=== PATIENT | male | born 1995 | race Caucasian/White ===

== ENCOUNTER 2023-03-02 10:14 | Emergency (ER) | payer BC, OTHER, SELFPAY ==
[2023-03-02 10:15] VITALS: BP 111/69; PULSE 55; RESP 18; TEMP 36.1; O2SAT 95; BMI 28.8
--- NOTE | 2023-03-02 11:54 | EX.ED.DYSGE1 ---
HPI History of Present Illness Chief Complaint: Dizziness Informant: patient, spouse/S.O. and family Narrative Narrative: Presents here with spouse and [id number] for evaluation. For the last 1 to 2 months intermittent lightheaded symptoms would come and go would have occasional palpitations will get sweats. At times happens in the morning or after work. 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 He does eat at work. Not a diabetic. His PCP however does not have yearly follow-ups. Intermittent paresthesias throughout his body. He states lower extremity weakness also. Denies previous similar symptoms in the past. No family history of sudden cardiac . No family history of multiple sclerosis. Occasional headaches none currently. Denies recent cough. Any history of vomiting or diarrhea. Does not take daily medications. Patient able to ambulate,. Prior similar symptoms: No PFSH PFSH Allergy/AdvReac Type Severity Reaction Status Date / Time No Known Allergies Allergy Verified 03/02/23 10:17 Social History Smoking Status: Never smoker ROS ROS ED Constitutional Constitutional ED: Denies chills, fever(s) or sweats Eyes Eyes: Denies change in vision ENT ENT ED: Denies dysphagia or sore throat Cardiovascular Cardiovascular: Reports palpitations and other Details: Lightheaded symptoms ; Denies chest pain, leg edema or racing heartbeat Respiratory/Chest Respiratory/Chest: Denies cough, dyspnea or dyspnea on exertion Gastrointestinal Gastrointestinal: Denies abdominal pain, diarrhea, nausea or vomiting Genitourinary Genitourinary ED: Denies dysuria, hematuria or urinary frequency Musculoskeletal Musculoskeletal: Denies back pain, extremity pain or neck pain Integumentary Denies rash or wounds Neurologic Neurologic: Reports paresthesias and weakness; Denies headache(s) EXAM Physical Exam Const Vital Signs: 03/02/23 10:15 03/02/23 10:47 03/02/23 12:15 Temperature 97.0 F L Temperature Source Temporal Pulse Rate 55 L 82 Respiratory Rate 18 14 Respiratory Effort Normal Respiratory Pattern Normal Blood Pressure 111/69 110/84 H Blood Pressure Mean 83 92 Pulse Ox 95 98 Oxygen Delivery Method Room Air Room Air 03/02/23 14:00 03/02/23 14:57 Temperature 98.4 F Temperature Source Pulse Rate 64 72 Respiratory Rate 14 14 Respiratory Effort Respiratory Pattern Blood Pressure 127/78 H 115/78 Blood Pressure Mean 94 Pulse Ox 98 99 Oxygen Delivery Method Room Air Positive well nourished and well developed General Appearance ED: well developed and NAD HEENT Reports moist mucous membranes normocephalic and atraumatic Eyes PERRL, EOMs intact bilaterally and conjunctivae normal General Eye ED: Yes normal appearance of both eyes Neck no lymphadenopathy and supple General: Negative for tenderness Chest Wall Chest: Negative for tenderness Resp normal respiratory effort and normal air movement Effort and Inspection: symmetric chest movement; Negative for respiratory distress Cardio regular rate, regular rhythm and no murmurs Peripheral Pulses: pulses 2+ throughout GI normal to inspection, nondistended, normoactive bowel sounds and non-tender Palpation: Negative for guarding or rebound tenderness present Back/Spine no CVA tenderness and no thoracic nor lumbar tenderness Extremity normal to inspection General Extremety ED: Negative for edema or tenderness General Extremity: Negative for edema Neuro oriented x3, CN's II-XII intact bilaterally and no sensory deficits noted Sensorium / Orientation: awake and alert Skin no rashes or lesions noted and no wounds MDM MDM MDM Narrative Medical decision making narrative: Interventions / MDM: Differential diagnosis: Cardiac dysrhythmia, palpitations, electrolyte abnormalities Diagnosis considered but do not suspect: N/A My EKG interpretation: EKG at 1213: Marked sinus bradycardia no clear heart blocks noted. EKG #2 at 1222: Sinus rate of 76, no ST or T wave changes. Imaging independently reviewed and interpreted by myself: N/A External documents reviewed: N/A Test considered but not ordered:N/A ED course: Patient intermittent palpitations generalized weakness paresthesias with intermittent lightheaded symptoms. Healthy no past medical history. He does not follow with PCP on a frequent basis. EKG ordered, will check labs thyroid magnesium levels. 1222: EKG is obtained during this episode noted patient had severe sweatiness lightheaded symptoms with abnormal EKG with heart rate 44. No clear heart blocks. Per nursing IV established 2 minutes prior there is no issues with this. Patient has had IV draws in the past with no difficulties. 1230: Repeat EKG is more normal rhythm. Possible vasovagal episode however symptoms 2 minutes after IV draw. Labs are pending. EKG sent to cardiology for evaluation and discussion. 1315: I did speak with Dr. Rivera who reviewed the EKG also sent it to an EP physician for evaluation. I reported possible vasovagal with IV stick 2 minutes prior. He states this is likely. We are awaiting final labs. His heart rates remain in the 70s blood pressure stable. Recheck he is clinically stable. This time awaiting labs and monitoring. He will relay any recommendations from EP. However everything is stable with him clinically being healthy, and plan for Holter monitor 48 hours possible event monitor afterwards. 1345: Potassium magnesium electrolytes normal. TSH normal. Hemoglobin 17.2. Remained stable we will ambulate for stability and plan for 48-hour Holter monitor. Patient remained stable, able to ambulate no return of symptoms. Holter monitor set up. 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 He will follow-up with cardiology as an outpatient with strict return precautions. All questions were answered. Re-evaluation: stable Disposition discussed with patient/family/significant other: Patient and significant other Case discussed with consulting clinician: Cylinder Block Mechanic, Dr. Rivera. This note was generated with [employer] dictation software. It may contain incorrect words, spelling, and punctuation that were not noted in checking the note before signing. Lab Data Attestation: I reviewed the patient's lab results. Labs: Laboratory Results - last 24 hr 03/02/23 12:10 WBC 9.6 RBC 6.17 Hgb 17.2 H Hct 51.3 MCV 83.1 MCH 27.9 MCHC 33.5 RDW Std Deviation 36.6 RDW Coeff of Aime 12.2 Plt Count 283 MPV 10.8 Immature Gran % (Auto) 0.400 Neut % (Auto) 74.7 H Lymph % (Auto) 16.3 L [place] % (Auto) 7.1 Eos % (Auto) 0.8 Baso % (Auto) 0.7 Absolute Neuts (auto) 7.2 Absolute Lymphs (auto) 1.57 Nucleated RBC % 0 Sodium 138 Potassium 4.6 Chloride 106 Carbon Dioxide 27.0 Anion Gap 5 BUN 13 Creatinine 1.06 Estim Creat Clear Calc 117.25 Est GFR (MDRD) Af Amer 106 Est GFR (MDRD) Non-Af 88 BUN/Creatinine Ratio 12.3 Glucose 105 Calcium 9.6 Magnesium 2.4 Total Bilirubin 0.70 AST 20 ALT 31 Alkaline Phosphatase 82 Total Protein 8.0 Albumin 4.2 Globulin 3.8 Albumin/Globulin Ratio 1.1 TSH 1.22 Discharge Plan Triage Chief Complaint: Dizziness ED Provider: Hugh Still Dx/Rx/DC Orders Clinical Impression: Palpitations, Bradycardia, sinus, Vaso-vagal reaction Instructions: ED Bradycardia, ED Palpitations, ED Near-Fainting- Vagal Reaction Primary Care Provider: LESVIA DANGELO Referrals: Cory Cyr MD [Med Staff - Active Staff] - 3-5 Days [facility] Doctor,Out of [Non-Staff] - Activity Restrictions/Additional Instructions: Event in the ED likely vasovagal reaction discussion with cardiology. This resolved. And labs are all normal. Maintain the 48-hour Holter monitor. Follow-up with cardiology. Return if worsening or return of symptoms Disposition Disposition: Home, Self Care Discharge Date/Time: 03/02/23 14:57
--- NOTE | 2023-03-02 12:13 | EKG12_ITS ---
Test Reason : DIZZY Blood Pressure : / mmHG Vent. Rate : 076 BPM Atrial Rate : 076 BPM P-R Int : 146 ms QRS Dur : 096 ms QT Int : 372 ms P-R-T Axes : 036 044 037 degrees QTc Int : 418 ms Normal sinus rhythm Possible Left atrial enlargement Borderline ECG Confirmed by JEFF PAULINO, BROOKE ([id number]), film or videotape editor TAMIKO FUNK ([id number]) on 04/06/2023 1:54:05 PM Referred By: MARICEL Confirmed By:LEONA AGUILAR MD
[2023-03-02 12:15] VITALS: BP 110/84; PULSE 82; RESP 14; O2SAT 98
[2023-03-02 12:38] LABS: Absolute Lymphocyte Count 1.57 X10^3/uL (0.83-4.51); Absolute Neutrophil Count 7.2 X10^3/uL (2.0-7.7); Basophil# 0.07 X10^3/uL; Basophil% 0.7 % (0-1); Eosinophil# 0.08 X10^3/uL; Eosinophils% 0.8 % (0-5); Hematocrit 51.3 % (40-54); Hemoglobin 17.2 g/dL (13.0-16.5); Lymphocyte # 1.57 X10^3/ul (0.83-4.51); Lymphocyte % 16.3 % (19-41); Mean Corp Hgb Conc 33.5 g/dL (32-36); Mean Corpuscular Hgb 27.9 pg (27.0-32.0); Mean Corpuscular Volume 83.1 fL (80-94); Mean Platelet Vol. 10.8 fl (6.2-12.0); Monocyte# 0.68 X10^3/uL; Monocyte% 7.1 % (0-10); NRBC Flagged by Analyzer 0 % (0-5); Neutrophil # 7.17 X10^3/uL (2.7-7.7); Neutrophil % 74.7 % (47-70); Platelet Count 283 K/mm3 (150-450); RBC Distribution Width CV 12.2 % (11.6-14.6); RBC Distribution Width SD 36.6 fl (35.1-43.9); Red Blood Count 6.17 M/mm3 (4.6-6.2); White Blood Count 9.6 K/mm3 (4.4-11.0)
[2023-03-02 13:32] LABS: ALB/GLOB Ratio 1.1 RATIO (0.9-2.4); AST(SGOT) 20 U/L (15-37); Alanine Aminotransfer ALT/SGPT 31 U/L (16-61); Albumin, Serum 4.2 g/dL (3.2-5.0); Alkaline Phosphatase 82 U/L (45-117); Anion Gap 5 (5-15); BUN 13 mg/dL (7-18); BUN/Creat Ratio 12.3 RATIO (10-20); Calcium,Total 9.6 mg/dL (8.5-10.1); Chloride 106 mmol/L (98-107); Creatinine, Serum 1.06 mg/dL (0.70-1.30); EST Glomerular Filtration Rate 88 mL/min (>60); Est Glom Filt Rate - Afr Amer 106 mL/min (>60); Estimated Creatinine Clearance 117.25 ml/min; Globulin 3.8 g/dL (2.2-4.2); Glucose 105 mg/dL (74-106); Magnesium 2.4 mg/dL (1.6-2.6); Potassium 4.6 mmol/L (3.5-5.1); Sodium Level 138 mmol/L (136-145); Thyroid Stim Hormone (TSH) 1.22 uIU/mL (0.358-3.74)
[2023-03-02 14:00] VITALS: BP 127/78; PULSE 64; RESP 14; O2SAT 98
[2023-03-02 14:57] VITALS: BP 115/78; PULSE 72; RESP 14; TEMP 36.9; O2SAT 99
== END 2023-03-02 14:57 | disposition home or self-care (01) ==
PROVIDERS: Emergency Provider Emergency Medicine; Visit Provider Emergency Medicine
DX: R55 Syncope and collapse (principal); R00.1 Bradycardia, unspecified; R00.2 Palpitations; R20.2 Paresthesia of skin
CPT/HCPCS: 80053; 83735; 84443; 85025; 93005; 93225; 93226; 99284

== ENCOUNTER → 2023-03-02 | Outpatient (CLI) | payer BC, OTHER, SELFPAY | END | disposition home or self-care (01) | LOC: PSN 14:03 | PROVIDERS: Referring Provider Emergency Medicine; Visit Provider Emergency Medicine | DX: R42 Dizziness and giddiness (principal) | CPT/HCPCS: 93225; 93226 ==